=== PATIENT | male | born 2000 | race Caucasian/White ===

== ENCOUNTER 2020-07-11 18:50 | Emergency (ER) | payer BC ==
[~2020-07-11] VITALS: Ht 185.4 cm; Wt 80.0 kg
--- NOTE | 2020-07-11 19:18 | NUR ---
THIS IS A 19Y M THAT COMES IN FOR LOC IN SHOWER WITH LAC TO THE BACK OF THE HEAD. DENIES ETOH/ DRUG USE/ DEHYDRATION, PT IS A/OX4 RESP EVEN UNLABORED, PT HAS VERY FLAT AFFECT BUT IS ANSWERING RN QUESTIONS. PT CONNECTED TO ALL MONITORING DR ARREOLA AT BEDSIDE FOR ASSESSMET
--- NOTE | 2020-07-11 19:30 | NUR ---
PT IN CT
[2020-07-11 19:52] LABS: MEAN CORPUSCULAR HEMOGLOBIN 29.3 pg (27.5-34.5); MEAN PLATELET VOLUME 11.7 fL (7.4-10.4); PLATELET COUNT 139 x10^3/uL (130-400); RED BLOOD COUNT 5.33 x10^6/uL (4.38-5.82); RED CELL DISTRIBUTION WIDTH 13.6 % (9.4-14.8)
[2020-07-11 19:58] LABS: ALANINE AMINOTRANSFERASE 43 U/L (12-78); ALBUMIN 4.4 g/dL (3.4-5.0); ANION GAP 8 mmol/L (5-15); CALCIUM 9.4 mg/dL (8.5-10.1); CHLORIDE 109 mmol/L (98-107); CREATININE 1.18 mg/dL (0.7-1.3)
[2020-07-11 20:01] LABS: ALKALINE PHOSPHATASE 84 U/L (45-117); BILIRUBIN,TOTAL 1.6 mg/dL (0.2-1.0); TOTAL PROTEIN 8.1 g/dL (6.4-8.2)
--- NOTE | 2020-07-11 20:12 | NUR ---
PT RESTING ON PRASHANT BANDA, INTERACTING WITH STAFF AND FRIEND. NO NEEDS AT THIS TIME AWAITING LAC REPAIR
[2020-07-11 20:20] LABS: MD YES
[2020-07-11 20:22] LABS: LYMPH#(MANUAL) 1.32 x10^3/uL (1-6.1); LYMPHS% (MANUAL) 11 % (22-44); MONOS% (MANUAL) 5 % (2-9); SEG#(MANUAL) 10.08 x10^3/uL (1.8-8); SEGS% (MANUAL) 84 % (42-75)
[2020-07-11 20:23] LABS: <PLATELET ESTIMATE> ADEQUATE; <PLT MORPHOLOGY> NORMAL PLT MORPH; <RBC MORPHOLOGY> NORMAL
[2020-07-11 21:02] VITALS: BP 139/85
--- NOTE | 2020-07-11 21:02 | NUR ---
Patient/Caregiver given discharge instructions and they have confirmed that they understand the instructions. Patient ambulatory with steady gait.
== END 2020-07-11 21:03 | disposition home or self-care (01) ==
LOC: EDBD 18:50 → ED 20:05
DX: S09.90XA Unspecified injury of head, initial encounter (principal); S01.01XA Laceration without foreign body of scalp, initial encounter; R55 Syncope and collapse; M54.5 Low back pain; X58.XXXA Exposure to other specified factors, initial encounter; Y93.89 Activity, other specified; Y92.89 Other specified places as the place of occurrence of the external cause; Y99.8 Other external cause status
CPT/HCPCS: 12032; 36415; 70450; 71250; 80053; 85025; 93005; 99285

== ENCOUNTER 2020-07-22 13:36 | Emergency (ER) | payer BC ==
[~2020-07-22] VITALS: Ht 188 cm; Wt 92.0 kg
[2020-07-22 13:55] VITALS: BP 125/69
[2020-07-22] MEDS ORDERED: NEOSPORIN OINT. PKT 1 PACKET ONE (14:02)
== END 2020-07-22 14:15 | disposition home or self-care (01) ==
LOC: ED 14:09
DX: S01.01XD Laceration without foreign body of scalp, subsequent encounter (principal); Z48.02 Encounter for removal of sutures; X58.XXXD Exposure to other specified factors, subsequent encounter
CPT/HCPCS: 99282